=== PATIENT | female | born 1980 | race Caucasian/White ===

== ENCOUNTER 2021-04-02 06:02 | Emergency (ER) | payer OTHER, SELFPAY ==
[2021-04-02 06:03] VITALS: BP 151/86; PULSE 89; RESP 18; TEMP 36.2; O2SAT 99; BMI 29.2
--- NOTE | 2021-04-02 06:06 | ED.RN ---
CALLED REINALDO FROM [facility] TO COME IN TO DRUG TEST THIS PT
--- NOTE | 2021-04-02 06:40 | EX.ED.GENINJ ---
HPI History of Present Illness Chief Complaint: Laceration Informant: patient Onset/Context/Timing Onset: Today Mechanism/Context: Incised Location of pain/injuries: Right hand Quality of Pain: Aching Current Severity: Mild Maximum Severity: Mild Associated Symptoms Associated Symptoms: Negative for Weakness and Loss of function Narrative Narrative: The patient is a 40-year-old female is otherwise healthy that presents to the emergency department laceration. Patient is left-hand dominant. She was at work and reached inside a barrel. She suffered a laceration to the right index and right third. She presented here immediately. She denies any weakness or numbness. She is unsure of her last tetanus shot. [facility] Medical History delivery delivered Home Medications NK 04/02/21 [History Last Taken Unknown] Allergy/AdvReac Type Severity Reaction Status Date / Time Penicillins [PCN] AdvReac PT UNSURE Verified 04/02/21 06:04 OF REACTION no significant family history no surgical history Social History Smoking Status: Current every day smoker ROS ROS ED Constitutional Constitutional ED: Denies chills or fever(s) Eyes Eyes: Denies blurry vision or change in vision ENT ENT ED: Denies ear pain or sore throat Cardiovascular Cardiovascular: Denies chest pain or palpitations Respiratory/Chest Respiratory/Chest: Denies cough, dyspnea or dyspnea on exertion Gastrointestinal Gastrointestinal: Denies abdominal pain, nausea or vomiting Genitourinary Genitourinary ED: Denies dysuria or urinary frequency Musculoskeletal Musculoskeletal: Denies arthralgias or myalgias Integumentary Denies rash Neurologic Neurologic: Denies headache(s) or paresthesias Psychiatric Psychiatric: Denies anxiety or depression Endocrine Endocrinology: Denies polydipsia or polyuria Allergic/Immunologic Allergic/Immunologic ED: Denies urticaria EXAM Physical Exam Const Vital Signs: 04/02/21 06:03 Temperature 97.2 F L Temperature Source Temporal Pulse Rate 89 Respiratory Rate 18 Blood Pressure 151/86 H Blood Pressure Mean 107 Pulse Ox 99 Oxygen Delivery Method Room Air Positive well nourished and well developed General Appearance ED: well developed HEENT Reports normocephalic, head/scalp atraumatic and moist mucous membranes Eyes PERRL and EOMs intact bilaterally Neck no lymphadenopathy and supple General: Negative for tenderness Chest Wall inspection of chest normal Resp normal respiratory effort and clear to auscultation bilaterally Cardio regular rate, regular rhythm and no murmurs GI normal to inspection, nondistended, normoactive bowel sounds Palpation: Negative for tender, guarding or rebound tenderness present Back/Spine no CVA tenderness Cervical Spine: Negative for cervical spine tenderness Thoracic Spine / Upper Back: Negative for thoracic spinal tenderness Extremity normal to inspection Extremity Narrative: Patient has 2 cm full-thickness laceration to the distal phalanges on the palmar aspect of the right index. There is a 1 cm laceration on the right third finger, palmar aspect. Cap refill is less than 2 seconds. Two-point discrimination preserved. Flexor profundus and flexor superficialis are preserved. General Extremety ED: Negative for tenderness Neuro oriented x3 and CN's II-XII intact bilaterally Neuro Narrative: No focal deficits appreciated. Sensorium / Orientation: alert Psych mental status grossly normal Skin no rashes or lesions noted, no wounds and skin turgor normal MDM MDM MDM Narrative Medical decision making narrative: Patient presents with lacerations to the right index and right third finger. The area was cleansed. It was injected with a total of 3 cc of 1% lidocaine without epinephrine. Wound was examined. There is no evidence of tendinous injury. There is no evidence of bony disruption. There is no pulsatile bleeding. The index finger was closed with 5 simple 6-0 interrupted suture. The third finger was closed with 3 simple 6-0 interrupted suture. Patient's tetanus was updated. She was counseled on local wound care. She will be discharged home. Discharge Plan Triage Chief Complaint: Laceration ED Provider: Luís Sheets Dx/Rx/DC Orders Instructions: ED Laceration, Hand: All Closures Prescriptions: No Action NK RF: 0 Primary Care Provider: NOT,DEFINED Referrals: Corporate,[facility] [GROUP OF PHYSICIANS] - 10 Day for suture removal NOT,DEFINED [Primary Care Provider] -
[2021-04-02] MEDS: Diphth,Pertuss(Acell),Tet Vac 0.5 ML Vial IM (07:16)
[2021-04-02] MEDS: Lidocaine 1% (20 ml mdv) 20 ML Vial INFILT (07:16)
== END 2021-04-02 07:35 | disposition home or self-care (01) ==
LOC: ED 06:51
PROVIDERS: Emergency Provider Emergency Medicine
DX: S61.210A Laceration without foreign body of right index finger without damage to nail, initial encounter (principal); F17.200 Nicotine dependence, unspecified, uncomplicated; X58.XXXA Exposure to other specified factors, initial encounter
CPT/HCPCS: 12002; 90471; 90715; 99283